=== PATIENT | female | born 1990 | race African-American/Black ===

== ENCOUNTER 2019-04-29 11:58 | Emergency (ER) | payer OTHER ==
[~2019-04-29] VITALS: Ht 175.3 cm; Wt 69.8 kg
[~2019-04-29 11:58] MED LIST: ALEVE220 M1 PO; ALEVE220 MG PO; APAP500; BENTYL 20 MG TA20 M1 PO; CEFTIN500 MG; CIPRO500 MG PO; FLAGYL500 MG PO; HYDROCODONE-AP1 EAC6 PO; IBUPROFEN 200200 M1 PO; IBUPROFEN 600600 M1 PO; LANOLIN56 GM; MONISTAT 745 GM; NAPROSYN500 MG PO; NOHOMEMEDICATIONS; NORCO 5-325 TA1 EACH PO; ONDANSETRON HCL4 M2 PO; PRENATAL; ZOVIRAX400 MG PO; [UNRECOGNIZED DRUG - CODE]
== END 2019-04-29 14:04 | disposition home or self-care (01) ==
LOC: ER 11:58
DX: H61.21 Impacted cerumen, right ear (principal); G43.909 Migraine, unspecified, not intractable, without status migrainosus; Z86.14 Personal history of Methicillin resistant Staphylococcus aureus infection; Z91.018 Allergy to other foods; Z91.010 Allergy to peanuts; Z91.013 Allergy to seafood